=== PATIENT | male | born 1990 | race Two or more races ===

== ENCOUNTER 2022-08-14 17:43 | Emergency (ER) | payer OTHER ==
[~2022-08-14] VITALS: Ht 175.3 cm; Wt 84.5 kg
[2022-08-14] MEDS ORDERED: KETOROLAC TROMETH 60MG/2ML VIAL IM ONE (18:15)
[2022-08-14] MEDS ORDERED: HYDROcodone-ACET 10/325MG TAB PO ONE (18:15)
[2022-08-14] MEDS ORDERED: HYDR-4798 PO (19:52)
[2022-08-14] MEDS ORDERED: IBUP800T26 PO (19:52)
[2022-08-14 23:30] VITALS: BP 115/71
== END 2022-08-14 23:45 | disposition home or self-care (01) ==
LOC: ER 17:43
DX: S30.0XXA Contusion of lower back and pelvis, initial encounter (principal); W00.1XXA Fall from stairs and steps due to ice and snow, initial encounter; Y93.89 Activity, other specified; Y92.89 Other specified places as the place of occurrence of the external cause; Y99.8 Other external cause status
CPT/HCPCS: 72100; 72220